=== PATIENT | male | born 1970 | race Caucasian/White ===

== ENCOUNTER 2016-11-02 20:16 | Emergency (ER) | payer OTHER ==
[~2016-11-02 20:16] MED LIST: ALPRAZOLAM PO; AMANTADINE HCL100 MG PO; AMITRYPTYLINE; BACTRIM DS TABL1 TA2 PO; BACTRIM DS TABL1 TAB PO; BP MEDICATION; CARBIDOPA-LEVO1 TAB PO; CELEBREX; CELEBREX PO; CLEOCIN HCL300 M1 PO; DOLOBID500 MG PO; DOXYCYCLINE PO; DULCOLAX5 MG PO; HALCION0.25 M1 PO; HYDROCODON-ACE1 EAC7 PO; IBUPROFEN800 MG PO; KEFLEX500 M1 PO; LIDODERM30 EA TOP; LORTAB 10-5001 EACH; LORTAB 5/500 TA1 TA1 PO; MOBIC PO; NO MEDICATIONS; ORUDIS75 M1 PO; PERCOCET 5-3251 TAB PO; PHENERGAN25 MG PO; PRILOSEC; PRILOSEC20 MG PO; PYRIDIUM PO; ROBAXIN500 MG PO; SINEMET PO; SKELAXIN PO; TYLENOL #3; ULTRAM PO; VICODIN 5/500 T1 TAB PO; VOLTAREN50 MG PO; ZANTAC PO; [UNRECOGNIZED DRUG - REMARK]
== END 2016-11-02 20:24 | disposition home or self-care (01) ==
LOC: CED 20:16
DX: Z53.21 Procedure and treatment not carried out due to patient leaving prior to being seen by health care provider (principal)